=== PATIENT | male | born 1950 | race Caucasian/White ===

== ENCOUNTER 2022-06-05 13:40 | Outpatient (CLI) | payer OTHER, SELFPAY ==
[2022-06-05 17:30] LABS: Chloride* 106 mmol/L (96-114)
[2022-06-05 17:31] LABS: Potassium* 4.5 mmol/L (3.6-5.1); Sodium* 141 mmol/L (135-149)
[2022-06-05 17:33] LABS: Estimated Glomerular Filt Rate 81 ml/min
[2022-06-05 17:34] LABS: Blood Urea Nitrogen* 18 mg/dL (7-30); Calcium* 9.3 mg/dL (8.4-10.6); Carbon Dioxide* 26 mmol/L (20-32); Glucose* 76 mg/dL (60-115)
[2022-06-05 18:05] LABS: PSA Screen* 0.19 ng/mL (0.10-4.00)
== END 2022-06-05 13:41 | disposition home or self-care (01) ==
PROVIDERS: PCP Family Medicine; Visit Provider Family Medicine
DX: I10 Essential (primary) hypertension (principal); Z12.5 Encounter for screening for malignant neoplasm of prostate
CPT/HCPCS: 80048; 84153

== ENCOUNTER 2023-06-29 11:08 | Outpatient (CLI) | payer OTHER, SELFPAY | END 2023-06-29 11:09 | disposition home or self-care (01) | PROVIDERS: PCP Family Medicine; Visit Provider Family Medicine | DX: Z12.5 Encounter for screening for malignant neoplasm of prostate (principal); Z13.220 Encounter for screening for lipoid disorders; Z13.21 Encounter for screening for nutritional disorder; N40.0 Benign prostatic hyperplasia without lower urinary tract symptoms; R53.83 Other fatigue | CPT/HCPCS: 80048; 80061; 82607; G0103 ==

== ENCOUNTER 2024-06-28 09:54 | Outpatient (CLI) | payer MEDICAID, SELFPAY | END 2024-06-28 09:55 | disposition home or self-care (01) | PROVIDERS: PCP Family Medicine; Visit Provider Family Medicine | DX: I10 Essential (primary) hypertension (principal); E29.1 Testicular hypofunction; Z13.220 Encounter for screening for lipoid disorders; Z12.5 Encounter for screening for malignant neoplasm of prostate | CPT/HCPCS: 80048; 80061; 84403; G0103 ==